=== PATIENT | female | born 1980 | race Native Hawaiian/Other Pacific Islander ===

== ENCOUNTER 2017-09-04 16:16 | Emergency (ER) | payer BC ==
[2017-09-04 16:34] VITALS: BP 118/78; PULSE 74; RESP 18; TEMP 97.6; O2SAT 99
[2017-09-04 18:15] LABS: SQUAMOUS EPITHIAL 2 /hpf (0-5); URINE BILIRUBIN NEGATIVE (NEGATIVE); URINE BLOOD 2+ (NEGATIVE); URINE CLARITY Clear (Clear); URINE COLOR Colorless (YELLOW); URINE GLUCOSE (UA) NORMAL (Normal); URINE LEUKOCYTE ESTERASE NEG Leu/uL (Negative); URINE NITRATE NEGATIVE (NEGATIVE); URINE PROTEIN NEGATIVE (NEGATIVE); URINE UROBILINOGEN NORMAL mg/dL (0.2-1.0)
--- NOTE | 2017-09-04 18:18 | CT ---
PROCEDURE: CT HEAD WITHOUT CONTRAST. HISTORY: headache COMPARISON: None available. TECHNIQUE: Axial computed tomography images were obtained through the head/brain without intravenous contrast. Radiation dose: Total exam DLP = 830.76 mGy-cm. This CT exam was performed using one or more of the following dose reduction techniques: Automated exposure control, adjustment of the mA and/or kV according to patient size, and/or use of iterative reconstruction technique. FINDINGS: HEMORRHAGE: No intracranial hemorrhage. BRAIN: No mass effect or edema. No atrophy or chronic microvascular ischemic changes. VENTRICLES: Unremarkable. No hydrocephalus. CALVARIUM: Unremarkable. PARANASAL SINUSES: Mild ethmoidal and sphenoid sinuses mucosal thickening. MASTOID AIR CELLS: Unremarkable as visualized. No inflammatory changes. OTHER FINDINGS: None. IMPRESSION: No evidence of acute intracranial hemorrhage mass effect or midline shift. Mild ethmoidal and sphenoid sinuses mucosal thickening.
--- NOTE | 2017-09-04 18:28 | C.PDOC ---
History Of Present Illness 37 yr old female with PMHx of c-spine radiculopathy, presents to the ER with complaints of right sided headache intermittent since yesterday. Patient states the headache is localized to the protestant area and is associated with light and sound sensitivity. Patient also reports of neck pain. Denies known trauma, fever , chills, chest pain, SOB, nausea, vomiting, abdominal pain, weakness or numbness. Time Seen by Provider: 09/04/17 16:55 Chief Complaint (Nursing): Breast Problem History Per: Patient History/Exam Limitations: no limitations Onset/Duration Of Symptoms: Days (1) Past Medical History Reviewed: Historical Data, Nursing Documentation, Vital Signs Vital Signs: Last Vital Signs Temp 97.6 F 09/04/17 16:28 Pulse 74 09/04/17 16:28 Resp 18 09/04/17 16:28 BP 118/78 09/04/17 16:28 Pulse Ox 99 09/04/17 18:58 Family History: States: No Known Family Hx - Social History Hx Alcohol Use: No Hx Substance Use: No Review Of Systems Except As Marked, All Systems Reviewed And Found Negative. Constitutional: Negative for: Fever, Chills Eyes: Positive for: Other (+ light and sound sensitivity ) Cardiovascular: Negative for: Chest Pain Respiratory: Negative for: Shortness of Breath Gastrointestinal: Negative for: Nausea, Vomiting, Abdominal Pain Neurological: Positive for: Headache (localized to protestant area). Negative for: Weakness, Numbness Physical Exam - Physical Exam Appears: Well, Non-toxic, No Acute Distress Skin: Warm, Dry, No Rash Head: Normacephalic Eye(s): bilateral: PERRL Ear(s): Bilateral: Normal Nose: No Flaring, No Discharge Oral Mucosa: Moist Throat: No Erythema, No Drooling Neck: Trachea Midline, No Midline Cervical Tenderness, No Step Off Deformity, Supple, Other (+right paraspinal tenderness, mild) Cardiovascular: Rhythm Regular, No Murmur Respiratory: No Decreased Breath Sounds, No Accessory Muscle Use, No Rales, No Rhonchi, No Stridor, No Wheezing Gastrointestinal/Abdominal: Soft, No Tenderness, No Distention, No Guarding Extremity: Normal ROM, No Pedal Edema, No Deformity, No Swelling Neurological/Psych: Oriented x3, Normal Speech, Normal Motor, Normal Sensation, Normal Reflexes ED Course And Treatment O2 Sat by Pulse Oximetry: 99 (RA) Pulse Ox Interpretation: Normal - CT Scan/US CT - Head Other Rad Studies (CT/US): Read By Radiologist, Radiology Report Reviewed CT/US Interpretation: FINDINGS: HEMORRHAGE: No intracranial hemorrhage. BRAIN : No mass effect or edema. No atrophy or chronic microvascular ischemic changes. VENTRICLES: Unremarkable. No hydrocephalus. CALVARIUM: Unremarkable. PARANASAL SINUSES: Mild ethmoidal and sphenoid sinuses mucosal thickening. MASTOID AIR CELLS: Unremarkable as visualized. No inflammatory changes. OTHER FINDINGS: None. IMPRESSION: No evidence of acute intracranial hemorrhage mass effect or midline shift. Mild ethmoidal and sphenoid sinuses mucosal thickening. Progress Note: On re-eval, pt is Afebrile, hemodynamicaly stable. Non-toxic, tolerate Po well in ED. PUlseOx 99% RA. neck: Supple, (-) meningeal sign. ENT : no acute findings. Lungs: CTA B/L, BS equal B/L. Abd: benign. Neurologicaly intact. CT head review (+) mild sinusitis. Pt advised. ref. to f/u with PMD in 1-2 days for re-eavl. return to ED if any worsening or new changes. Medical Decision Making Medical Decision Making: PLAN: * CT - Head * POC * Urinalysis * Tramdol PO * Zofran PO * Prednisone PO Disposition Counseled Patient/Family Regarding: Studies Performed, Diagnosis, Need For Followup, Rx Given - Disposition Referrals: Allison Erickson [Medical Doctor] - Disposition: HOME/ ROUTINE Disposition Time: 18:55 Condition: STABLE Additional Instructions: ENCOURAGE FLUIDS TAKE MEDICATION PRESCRIBED FOLLOW UP WITH PMD, NEUROLOGIST IN 2-3 DAYS FOR RE-EVALUATION. RETURN TO ED IF ANY WORSENING OR NEW CHANGES. Prescriptions: Acetaminophen/Butalbital/Caf [Fioricet] 1 tab PO TID PRN #10 tab PRN Reason: Headache Amoxicillin/Clavulanate [Augmentin 875 MG-125 MG] 1 tab PO BID #14 tab Prednisone [Deltasone] 40 mg PO DAILY #6 tablet Instructions: Sinus Headache (DC) Forms: [employer] ([place]) - Clinical Impression Clinical Impression: Headache, Sinusitis - PA / PREVENTATIVE MAINTENANCE TECHNICIAN / Resident Statement MD/DO has reviewed & agrees with the documentation as recorded. - Scribe Statement The provider has reviewed the documentation as recorded by the Scribe Nidia Zuleta All medical record entries made by the Terryibnahed were at my direction and personally dictated by me. I have reviewed the chart and agree that the record accurately reflects my personal performance of the history, physical exam, medical decision making, and the department course for this patient. I have also personally directed, reviewed, and agree with the discharge instructions and disposition.
== END 2017-09-04 19:25 | disposition home or self-care (01) ==
LOC: C.ER 16:16
DX: J32.9 Chronic sinusitis, unspecified (principal); R51 Headache